=== PATIENT | female | born 1990 | race Caucasian/White ===

== ENCOUNTER 2021-07-25 12:38 | Emergency (ER) | payer BC, SELFPAY ==
[2021-07-25 12:54] VITALS: BP 133/88; PULSE 96; RESP 18; TEMP 37.3; O2SAT 99
--- NOTE | 2021-07-25 13:37 | ED.EAR ---
HPI - Ear Problem General Chief complaint: Ear Stated complaint: Rt Ear pain Time Seen by Provider: 07/25/21 13:30 Source: patient and RN notes reviewed Mode of arrival: ambulatory Limitations: no limitations History of Present Illness HPI Narrative: 30-year-old female presents with concern for right ear pain. Reports pain started on Thursday after she went tubing. Reports small amount of drainage from the ear. Reports inner ear pain as well. Reports decreased hearing in the right ear. She denies nasal congestion, rhinorrhea, sore throat, fever, cough. Reports taking ibuprofen for pain. Reports of history of having wax impaction. MD Complaint: ear pain Location: right ear Related Data Allergies Allergy/AdvReac Type Severity Reaction Status Date / Time No Known Allergies Allergy Verified 07/25/21 13:05 Review of Systems Review of Systems: CONSTITUTIONAL: Denies malaise, chills, sweats, or fever. EYES: Denies visual changes, redness, or discharge. ENT: Denies rhinorrhea, congestion, sinus pain, and sore throat. Reports right ear pain and drainage CARDIOVASCULAR: Denies chest pain, palpitations, or edema. RESPIRATORY: Denies cough or dyspnea. GASTROINTESTINAL: Denies abdominal pain, nausea, vomiting, diarrhea SKIN: Denies rash or itching. MUSCULOSKELETAL: Denies myalgia. NEUROLOGIC: Denies headache. All systems reviewed & are unremarkable except as noted in HPI and below PMFSH Comments At time of signature, agree with nursing past medical, surgical, social and family history. There is no relevant family history pertinent to the presenting complaint Exam Narrative: GENERAL: Well-appearing, well-nourished, and in no acute distress. HEAD: Normocephalic EYES: PERRLA, conjunctivae clear ENT: Nares clear, turbinates pink. Mucous membranes moist. Left TM pearly justice with sharp light reflex bilaterally; right tragal tenderness with auditory canal erythema, edema, fluid-filled pustule noted, right TM erythematous and bulging. Oropharynx not erythematous without lesions. Tonsils not enlarged and without exudate, no drooling, no hoarseness, no trismus, uvula midline. NECK: Supple. No lymphadenopathy CHEST: Clear to auscultation, breath sounds equal. No wheezing, rhonchi, rales, or stridor. No respiratory distress, speaks in full sentences. HEART: Regular rate and rhythm. No murmur heard. SKIN: Warm, dry, no rash. NEURO: Alert and oriented x3. PSYCH: Normal mood and affect Course Course Emergency Course: Patient is aware of diagnosis, understands and agrees to treatment plan. Anticipatory guidance given. Patient agrees to follow-up as directed and is aware of reasons to seek care at the emergency department. Portions of this record may have been created with voice recognition software Vital Signs Vital signs: Vital Signs Temperature 99.1 F 07/25/21 12:54 Pulse Rate 96 07/25/21 12:54 Respiratory Rate 18 07/25/21 12:54 Blood Pressure 133/88 07/25/21 12:54 Pulse Oximetry 99 07/25/21 12:54 Temperature 99.1 F 07/25/21 12:54 Pulse Rate 96 07/25/21 12:54 Respiratory Rate 18 07/25/21 12:54 Blood Pressure 133/88 07/25/21 12:54 Pulse Oximetry 99 07/25/21 12:54 Reviewed. Medical Decision Making MDM Narrative Medical decision making narrative: Differential diagnosis considered: Woods virus, strep pharyngitis, allergic rhinitis, upper respiratory tract infection, sinusitis, rhinosinusitis, nasopharyngitis. viral pharyngitis, otitis media, otitis externa, cerumen impaction, foreign body, eustachian tube dysfunction. Exam findings show no acute concerns or changes; patient is non-toxic appearing and is in no distress. Patient is appropriate for outpatient treatment and follow-up. Vital Signs Vital Signs: Vital Signs Temperature 99.1 F 07/25/21 12:54 Pulse Rate 96 07/25/21 12:54 Respiratory Rate 18 07/25/21 12:54 Blood Pressure 133/88 07/25/21 12:54 Pulse Oximetry 99 07/25/21 12:54
== END 2021-07-25 13:45 | disposition home or self-care (01) ==
PROVIDERS: Emergency Provider Nurse Practitioner
DX: H60.501 Unspecified acute noninfective otitis externa, right ear (principal); H66.001 Acute suppurative otitis media without spontaneous rupture of ear drum, right ear
CPT/HCPCS: 99213; G0463